=== PATIENT | female | born 1980 | race Caucasian/White ===

== ENCOUNTER 2020-07-05 10:38 | Day surgery (SDC) | payer OTHER, SELFPAY ==
[2020-07-05] VITALS (28 sets, daily range): BP systolic 100–177; BP diastolic 51–85; PULSE 53–64; RESP 12–20; TEMP 6.1–43; O2SAT 96–100; BMI 24.5; BMI 25.4
--- NOTE | 2020-07-05 11:13 | HMH.EDABDPAI ---
ED Disposition Clinical Impression: Ovarian torsion Disposition: Still a Patient Condition on Discharge: Good Referrals: PCP,No [Primary Care Provider] - Time of Disposition: 16:29 - Critical Care Critical Care Time: Yes (75) Attestation: On , the high probability of a clinically significant, sudden or life threatening deterioration of the following system(s) required my full and direct attention, intervention and personal management. The time I documented below is in addition to time spent performing reported procedures but includes the following listed in this critical care notation. Total Critical Care Time: 75 Vital system(s) involved:: Circulatory Failure (torsion) My critical care processes included: Assessment & monitoring of V/S, Initial and Re-exams, Data Review/Interpretation, Coordinating Care, Medication Orders and management, Documentation Medical Decision Making - Aaron Inquiry Pt receiving controlled substance: No Vital Signs: 07/05/20 10:48 07/05/20 11:35 07/05/20 11:47 Temperature 98.4 F Temperature Source Oral Pulse Rate 58 L 59 L Pulse Rate [Right Brachial] 64 Respiratory Rate 16 Blood Pressure 133/81 130/66 Blood Pressure [Right Arm] 142/80 H Blood Pressure Mean 107 88 Blood Pressure Mean [Right Arm] 100 Blood Pressure Source [Right Arm] Automatic Cuff Blood Pressure Position [Right Arm] Supine 02 Sat by Pulse Oximetry 100 100 99 Oxygen Delivery Method Room Air 07/05/20 12:16 07/05/20 12:17 07/05/20 12:18 Temperature Temperature Source Pulse Rate 53 L Pulse Rate [Right Brachial] Respiratory Rate Blood Pressure 177/85 H Blood Pressure [Right Arm] Blood Pressure Mean 115 Blood Pressure Mean [Right Arm] Blood Pressure Source [Right Arm] Blood Pressure Position [Right Arm] 02 Sat by Pulse Oximetry 100 100 Oxygen Delivery Method 07/05/20 12:19 07/05/20 12:30 07/05/20 12:31 Temperature Temperature Source Pulse Rate Pulse Rate [Right Brachial] Respiratory Rate Blood Pressure 147/73 H Blood Pressure [Right Arm] Blood Pressure Mean 97 Blood Pressure Mean [Right Arm] Blood Pressure Source [Right Arm] Blood Pressure Position [Right Arm] 02 Sat by Pulse Oximetry 100 100 100 Oxygen Delivery Method 07/05/20 12:45 07/05/20 13:00 07/05/20 13:10 Temperature Temperature Source Pulse Rate Pulse Rate [Right Brachial] Respiratory Rate Blood Pressure 161/68 H Blood Pressure [Right Arm] Blood Pressure Mean 99 Blood Pressure Mean [Right Arm] Blood Pressure Source [Right Arm] Blood Pressure Position [Right Arm] 02 Sat by Pulse Oximetry 100 100 100 Oxygen Delivery Method 07/05/20 13:15 07/05/20 13:24 07/05/20 16:05 Temperature Temperature Source Pulse Rate Pulse Rate [Right Brachial] Respiratory Rate Blood Pressure 116/61 Blood Pressure [Right Arm] Blood Pressure Mean 71 Blood Pressure Mean [Right Arm] Blood Pressure Source [Right Arm] Blood Pressure Position [Right Arm] 02 Sat by Pulse Oximetry 100 100 Oxygen Delivery Method 07/05/20 16:06 07/05/20 16:28 Temperature 98.2 F Temperature Source Pulse Rate 60 64 Pulse Rate [Right Brachial] Respiratory Rate 18 Blood Pressure 128/78 Blood Pressure [Right Arm] Blood Pressure Mean Blood Pressure Mean [Right Arm] Blood Pressure Source [Right Arm] Blood Pressure Position [Right Arm] 02 Sat by Pulse Oximetry 99 Oxygen Delivery Method Room Air - Lab Data Lab results reviewed: Yes: I reviewed the patient's lab results. Lab Results 07/05/20 11:10: WBC 6.3, RBC 4.68, Hgb 14.7, Hct 43.7, MCV 93.3, MCH 31.3 H, MCHC 33.6, RDW 13.0, Plt Count 187, MPV 8.4, Neut % (Auto) 69.5, Lymph % (Auto) 25.2, [place] % (Auto) 4.2, Eos % (Auto) 0.9, Baso % (Auto) 0.2, Neut # (Auto) 4.4, Lymph # (Auto) 1.6, [place] # (Auto) 0.3, Eos # (Auto) 0.1, Baso # (Auto) 0.0 06/20
--- NOTE | 2020-07-05 11:30 | CT_ITS ---
PROCEDURE: CT ABDOMEN PELVIS W CON CLINICAL INDICATION: abd pain Abdominal pain with nausea and vomiting COMPARISON: No exams were available for comparison TECHNIQUE: IV Contrast: 75ML Isovue 370 Oral Contrast None Axial images obtained with sagittal and coronal reformats. All CT scans at the facility use one or more dose reduction, viz: automated exposure control, ma/kV adjustment per patient size (including targeted exams where dose is matched to indication, i.e. head), or iterative reconstruction technique. FINDINGS: LOWER THORAX: There is a 4 mm noncalcified nodule in the lingula. 3 mm noncalcified nodules the left lower lobe. ABDOMEN & PELVIS: Focal decreased attenuation in the left hepatic lobe at the falciform ligament region common place for focal fatty infiltration measuring 1.5 cm. The gallbladder, spleen, adrenal glands, pancreas, and kidneys have an unremarkable appearance. No renal or ureteral calculi. No hydronephrosis. No evidence of appendicitis. No intestinal obstruction or free air. There has been a prior hysterectomy. There is a complex cystic pelvic mass epicentered in the central aspect of the pelvis were extending both right and left aspect of the pelvis. The mass measures 11 cm transverse, 6 cm AP, and 5.5 cm cephalad caudad. There is some lobulation of the pelvic mass along the left aspect with a 3 cm cystic component on the left aspect and a 1.5 cm cystic component posteriorly and on the left. Small amount of pelvic fluid is also noted. No acute bony findings. Small bilateral fibrosis cortical defects noted of the femoral necks on both sides. IMPRESSION: Complex cystic pelvic mass. Along the left aspect of the mass there are 2 rounded cystic areas with thin emmanuel which may be left-sided ovarian cysts with a central right cystic component possibly due to a large exophytic cyst or even a cyst from right adnexa. Ovarian cystadenoma is consideration. The mass is not well delineated due to overlying unopacified bowel loops and unopacified urinary bladder. Pelvic ultrasound suggested for further evaluation initially. MRI may eventually be needed. Dictated by: Aly Schulz MD 07/05/2020 12:49 Aly Schulz MD in [facility] 07/05/2020 12:49
[2020-07-05 11:32] LABS: Chloride 105 mmol/L (98-107); Potassium 3.7 mmoL/L (3.5-5.1); Sodium 135 mmol/L (136-145)
[2020-07-05 11:33] LABS: Basophils % 0.2 % (0.1-2.0); Eosinophils # 0.1 K/mm3 (0.0-0.4); Eosinophils % 0.9 % (0.1-12.0); Hematocrit 43.7 % (37.0-47.0); Hemoglobin 14.7 g/dL (12.2-16.2); Lymphocytes # 1.6 K/mm3 (0.7-4.5); Lymphocytes % 25.2 % (10-50); Mean Corpuscular HGB Conc 33.6 g/dL (31.8-35.4); Mean Corpuscular Hemoglobin 31.3 pg (27.0-31.2); Mean Corpuscular Volume 93.3 fl (81-99); Mean Platelet Volume 8.4 fl (7.4-10.4); Monocytes # 0.3 K/mm3 (0.1-1.0); Monocytes % 4.2 % (1.7-9.3); Neutrophils # 4.4 K/mm3 (1.8-7.8); Neutrophils % 69.5 % (37.0-80.0); Platelet Count 187 K/mm3 (142-424); Red Blood Count 4.68 M/mm3 (4.20-5.40); White Blood Count 6.3 K/mm3 (4.8-10.8)
[2020-07-05 11:34] LABS: Alanine Aminotransferase 16 U/L (12-78); Aspartate Amino Transferase 27 U/L (14-36); Blood Urea Nitrogen 10 mg/dl (7-17); Creatinine Clearance Estimated 124 mL/min (50-200); Estimated Glomerular Filt Rate 112 ml/min (>60); GFR (African American) 136 ML/MIN (>60)
[2020-07-05 11:35] LABS: Albumin Level 4.3 g/dl (3.5-5.0); Albumin/Globulin Ratio 1.3 (1.1-1.8); Alkaline Phosphatase 84 U/L (38-126); Anion Gap 10.7 mEq/L (5-15); Bilirubin,Total 0.5 mg/dl (0.2-1.3); Calcium 9.6 mg/dl (8.4-10.2); Carbon Dioxide 23 mmol/L (22.0-30.0); Globulin 3.3 g/dL (1.3-3.2); Glucose 116 mg/dl (74-100); Lipase 35 U/L (23-300); Total Protein,Serum 7.6 g/dl (6.3-8.2)
[2020-07-05 11:36] LABS: Microscopic, Urine URINE MICROSCOPIC (MICROSCOPIC)
[2020-07-05 11:39] LABS: Appearance,Urine CLEAR (Clear); Bilirubin,Urine Negative (Negative); Blood, Urine Negative (Negative); Color,Urine YELLOW (Yellow); Glucose,Urine (UA) Negative (Negative); Ketones,Urine 1+ (Negative); Leukocyte Esterase,Urine Negative (Negative); Nitrate,Urine Negative (Negative); PH,Urine 7.5 (5.0-8.5); Protein,Urine Negative (Negative); Urobilinogen,Urine 0.2 EU/dl (0.2)
[2020-07-05 11:42] LABS: Urine Pregnancy, HCG Qual. Negative (Negative)
[2020-07-05 11:55] LABS: Bacteria,Urine 3+ /lpf; Squamous Epithelial Cell,Urine TNTC #/hpf (0-5); WBC,Urine Occasional #/hpf (0-3)
--- NOTE | 2020-07-05 13:11 | US_ITS ---
PROCEDURE: US TRANSVAGINAL CLINICAL INDICATION: Abnl CT finding Pain, pelvic pain COMPARISON: No exams were available for comparison FINDINGS: There is given history of prior hysterectomy and right loose rectum E. there is a large complex cystic lesion within the pelvis corresponding to the CT abnormality measuring 10 x 5 cm with multiple septations consistent with a large ovarian cyst. There is a rind of Iso echogenicity around 1 of the cystic structures and may be due to ovarian tissue. Blood flow is not identified within the ovary. Torsion is therefore considered. There is a small amount of fluid in the cul-de-sac. IMPRESSION: Complex left ovarian cyst. No evidence of blood flow within the ovary or the emmanuel of the cyst suggesting ovarian torsion. Ovarian cystadenoma is included in the differential diagnosis. Follow-up recommend Dictated by: Aly Schulz MD 07/05/2020 14:24 Aly Schulz MD in [facility] 07/05/2020 14:24
[2020-07-05 15:14] LABS: Coronavirus 19 IgG Antibody Negative (Negative); Coronavirus 19 IgM Antibody Negative (Negative)
--- NOTE | 2020-07-05 15:40 | PC.NURSE ---
OB Dr. Peralta at bedside.
--- NOTE | 2020-07-05 16:09 | PC.NURSE ---
Patient prepped for surgery and consents signed.
--- NOTE | 2020-07-05 16:10 | HMH.HP ---
*Admission Date: 07/05/20 *Chief complaint: Severe left lower quadrant pain possible ovarian torsion *History of present illness: She is a 39-year-old 2 para 2 who started having some lower abdominal discomfort and left lower quadrant pain 48 hours ago. She went to work today and was in severe pain so she came to the ER. CT scan showed a possible 11 cm left ovarian cyst. She had a previous hysterectomy and RSO. Ultrasound confirmed a 7 cm complex cyst with possible hemorrhage or torsion. There was no flow on the ovary but the cyst wall was very thin. There is trace of fluid in the cul-de-sac as well. [facility] History I have reviewed the patient's past medical history: Yes *Have you ever received a pneumonia vaccine?: No *Have you received a flu vaccine this season?: Yes - *Social History *Occupational Status:: employed *Travel in the last 8 weeks: None Family Hx:: No significant family history Review of Systems - Review of Systems Review of systems:: pertinent systems reviewed and negative unless documented below Meds Allergies Allergy/AdvReac Type Severity Reaction Status Date / Time No Known Allergies Allergy Verified 07/05/20 11:20 Exam Vital signs and Labs for Last 24 Hours: Temp Pulse Resp BP Pulse Ox 98.4 F 53 L 16 161/68 H 100 07/05/20 10:48 07/05/20 12:16 07/05/20 10:48 07/05/20 13:10 07/05/20 13:15 Laboratory Results - last 24 hr 07/05/20 11:10: WBC 6.3, RBC 4.68, Hgb 14.7, Hct 43.7, MCV 93.3, MCH 31.3 H, MCHC 33.6, RDW 13.0, Plt Count 187, MPV 8.4, Neut % (Auto) 69.5, Lymph % (Auto) 25.2, [place] % (Auto) 4.2, Eos % (Auto) 0.9, Baso % (Auto) 0.2, Neut # (Auto) 4.4, Lymph # (Auto) 1.6, [place] # (Auto) 0.3, Eos # (Auto) 0.1, Baso # (Auto) 0.0 07/05/20 11:10: Sodium 135 L, Potassium 3.7, Chloride 105, Carbon Dioxide 23, Anion Gap 10.7, BUN 10, Creatinine 0.60, Estimated Creat Clear 124, Estimated GFR 112, Est GFR ( Amer) 136, Glucose 116 H, Calcium 9.6, Total Bilirubin 0.5, AST 27, ALT 16, Alkaline Phosphatase 84, Total Protein 7.6, Albumin 4.3, Globulin 3.3 H, Albumin/Globulin Ratio 1.3, Lipase 35 07/05/20 11:10: SARS-CoV-2 IgG Ab (Rapid) Negative, SARS-CoV-2 IgM Ab (Rapid) Negative 07/05/20 11:30: Urine Color Yellow, Urine Appearance Clear, Urine pH 7.5, Ur Specific [place] 1.020, Urine Protein Negative, Urine Glucose (UA) Negative, Urine Ketones 1+, Urine Blood Negative, Urine Nitrate Negative, Urine Bilirubin Negative, Urine Urobilinogen 0.2, Ur Leukocyte Esterase Negative, Urine RBC None, Urine WBC Occasional, Ur Squamous Epith Cells Tntc, Urine Bacteria 3+ 07/05/20 11:30: Urine HCG, Qual Negative I & O for Last 24 hours: Intake & Output 07/03/20 07/04/20 07/05/20 07/06/20 11:59 11:59 11:59 11:59 Weight 135 lb - Constitutional no acute distress - *Routine HEENT Exam Head: Present: normocephalic Eye: Present: EOMI, PERRL ENT: Present: mucous membranes moist - *Routine Neck Exam Present: supple, full ROM - *Routine Respiratory Exam Absent: accessory muscle use (good air entry bilaterally), wheezes, crackles - *Routine Cardiovascular Exam Present: RRR. Absent: murmur - *Routine Abdominal Exam Present: soft, normoactive bowel sounds. Absent: tenderness, rebound, guarding, mass - *Routine Rectal Exam Patient deferred: visual exam, digital exam - *Routine Exam Patient deferred: external exam, groin exam, perineal exam - *Routine Extremities Exam Present: full ROM. Absent: cyanosis, edema, calf tenderness - *Routine Skin Exam Present: intact (good color) - *Routine Neurological Exam Present: alert, oriented X3 - Routine Psychiatric Exam Present: normal affect Assessment and Plan (1) Left ovarian cyst Status: Acute Category: Medical Code(s): N83.202 - Unspecified ovarian cyst, left side (2) Hemorrhagic cyst of left ovary Status: Acute Category: Medical Code(s): N83.202 - Unspecified ovarian cyst, left side (3) Ovarian torsion
--- NOTE | 2020-07-05 17:02 | P.PN_ITS ---
[facility] Anesthesia Checklist - Structural Data Admitted From: Emergency Dept Planned Operative Procedure/s: dx lap Consent for Planned Operative Procedure(s) Verified: Yes - Airway Assessment C-Spine Mobility Assessed: Yes TMJ Mobility Assessed: Yes Dentition: Poor Dentition - Neurological Assessment Level of Consciousness: Awake, Alert, Appropriate - Anesthesia Plan Anesthesia Risk discussed: Yes Anesthesia Plan: Verified ASA Class: II Anesthesia Type: General [facility] History I have reviewed the patient's past medical history: Yes *Have you ever received a pneumonia vaccine?: No *Have you received a flu vaccine this season?: Yes Anesthesia experience/problems:: none Other Surgeries: Yes: Hysterectomy-Partial Amputation: No - *Social History Smoking Status: Current every day smoker Substance Use Type: denies use *Occupational Status:: employed *Travel in the last 8 weeks: None Family Hx:: Unable to obtain
--- NOTE | 2020-07-05 17:57 | HMH.OPNOTE ---
Date of procedure: 07/05/20 Pre-op Diagnosis:: Severe left lower quadrant pain, left ovarian cyst, hemorrhagic left ovarian cyst, possible torsion Post-op Diagnosis:: Left lower quadrant pain, left hemorrhagic ovarian cyst, torsion of the left ovary, endometriosis of the ovary and deep pelvis Procedure performed:: Laparoscopic left nephrectomy Surgeon:: Guanaco Reid MD GAS USAGE METER CLERK:: Boyd Hubbard Anesthesia: GETA Estimated blood loss (mL): 50 Clinical Note:: She is a 39-year-old 2 para 2 lady who started having some left lower quadrant pain a couple of days ago. She began having severe pain this afternoon and came into the ER. She had a CT scan that showed an 11 cm left complex multicystic left ovary. There was no flow in the ovary and it was felt to be under torsion. As result of that she was offered laparoscopic ovarian cystectomy as well as possible left oophorectomy. She has had a previous hysterectomy and right salpingo-oophorectomy. Operative findings:: Her left ovary was enlarged and had multiple hemorrhagic ovarian cyst. There was one large cyst approximately 6 cm in size that was filled with serous fluid. There were a couple of chocolate cysts possibly consistent with endometriosis. The left ovary was twisted upon its pedicle and there did not seem to be any blood supply to the left ovary. There were 3 or 4 spots of old powder canales in the pelvis possibly consistent with endometriosis. I did not remove these because 2 of the spots were overlying what appeared to be the left ureter and they were quite thickly adhesed. Operative note:: She was taken the operating room where general anesthesia was found to be adequate. She was prepped and draped in normal sterile fashion in the semilithotomy position. The bladder was drained and a sponge forcep was placed in the vagina. I injected 10 cc of 0.5% ropivacaine around the umbilicus and made a small incision within the umbilicus. I inserted a Veress needle into the abdominal cavity and then insufflated the abdominal cavity with carbon dioxide to a pressure of 20 mmHg. I then inserted a 5 mm trocar under direct vision. I injected through and through the pubic hairline, made a small incision here and inserted an 11 mm trocar under direct vision. Identified the inferior gastric arteries, went lateral to these on the left side and then inserted a 5 mm trocar after injecting through and through with ropivacaine. The findings were as previously dictated then using harmonic scalpel I detorsed the left ovary. There were multiple cysts on the ovary as well as hemorrhagic cyst and using harmonic scalpel I opened these up. There did not seem to be much bleeding from any of these and I suspected that the ovary was no longer functional as a result of the torsion. I elected to remove the ovary. After I detorsed the ovary the left pedicle was actually quite engorged possibly consistent with a small hematoma obstructing the blood flow. Using harmonic scalpel on coagulation mode I cut through the ovarian pedicle. I then placed an Endoloop on the left pedicle. I then drained all the cyst from the left ovary and cut the ovary in half with harmonic scalpel and removed in 2 pieces from the pelvis. The second larger piece was placed in an Endo Catch bag and removed through the 11 mm trocar site. We then inspected the pelvis and rinsed it well with saline. All sites were hemostatic. We then injected approximately 30 cc of 0.5% ropivacaine into the pelvis. The secondary trochars were removed under direct vision. The gas was over the abdomen and no bowel was seen to follow through the trocar sites. The 11 mm trocar site was closed deeply with [id number] 2-0 Vicryl suture followed by running subcuticular 4-0 Monocryl suture. The 5 mm trocar sites were closed with subcuticular 4-0 Monocryl. Sterile dressings were applied. She tolerated the procedure well and was taken to the recovery room in ex
--- NOTE | 2020-07-05 18:03 | P.PN_ITS ---
[facility] Anesthesia Record Part I Intake, IV Amount: 1,200 Estimated blood loss (mL): 50 Urine output (mL): 0 Blood Pressure: 103/60 SaO2: 98 Pulse Rate: 63 Respiratory Rate: 12 Temperature: 97.6 F Patient is:: Awake, Stable Stable to PACU at:: 17:55
--- NOTE | 2020-07-06 17:26 | P.PN_ITS ---
[facility] Anesthesia Record Part II Discharge Time: 18:25 Destination: Surgical Day Care (OP Surgery) PACU nurse assessment reviewed?: Yes Patient Condition:: Good Anesthesia Complications:: None Swallowing reflex intact?: Yes Cyanosis?: No Blood Pressure: 122/51 Pulse Rate: 56 Temperature: 97.6 F Mental Status: Alert & Oriented Pain level:: 0 Nausea and/or vomitting:: None Intake, IV Amount: 0
[2020-07-06 17:27] VITALS: BP 122/51; PULSE 56; TEMP 36.4
== END 2020-07-05 19:25 | disposition home or self-care (01) ==
LOC: ER 16:30 → SDC 17:15
PROVIDERS: Emergency Provider Family Medicine; Visit Provider Nurse Practitioner Obstetrics & Gynecology
PROC: (CPT 50546; principal; 2020-07-05 13:45)
DX: N83.512 Torsion of left ovary and ovarian pedicle; N80.1 Endometriosis of ovary; N80.3 Endometriosis of pelvic peritoneum; Z72.0 Tobacco use; E66.9 Obesity, unspecified; Z68.42 Body mass index [BMI] 45.0-49.9, adult
CPT/HCPCS: 50546; 74177; 76830; 80053; 81001; 81025; 83690; 85025; 86328; 87086; 96365; 96374; 96375; 99284; J2405; Q9967; U0003

== ENCOUNTER → 2022-10-24 11:42 | Outpatient (CLI) | payer BC, SELFPAY ==
[2022-10-24 12:13] LABS: Basophils % 0.7 % (0.1-2.0); Eosinophils # 0.1 K/mm3 (0.0-0.4); Eosinophils % 2.3 % (0.1-12.0); Hematocrit 44.8 % (37.0-47.0); Hemoglobin 14.7 g/dL (12.2-16.2); Lymphocytes # 1.8 K/mm3 (0.7-4.5); Lymphocytes % 39.9 % (10-50); Mean Corpuscular HGB Conc 32.8 g/dL (31.8-35.4); Mean Corpuscular Volume 91.5 fl (81-99); Mean Platelet Volume 8.6 fl (7.4-10.4); Monocytes # 0.2 K/mm3 (0.1-1.0); Monocytes % 4.4 % (1.7-9.3); Neutrophils # 2.4 K/mm3 (1.8-7.8); Neutrophils % 52.7 % (37.0-80.0); Platelet Count 221 K/mm3 (142-424); Red Cell Distribution Width 13.2 % (11.5-17.5); White Blood Count 4.6 K/mm3 (4.8-10.8)
[2022-10-24 12:44] LABS: Alanine Aminotransferase 24 U/L (12-78); Albumin Level 3.9 g/dl (3.5-5.0); Albumin/Globulin Ratio 1.3 (1.1-1.8); Alkaline Phosphatase 98 U/L (38-126); Anion Gap 11.3 mEq/L (5-15); Aspartate Amino Transferase 33 U/L (14-36); Bilirubin,Total 0.4 mg/dl (0.2-1.3); Blood Urea Nitrogen 11 mg/dl (7-17); Calcium 8.9 mg/dl (8.4-10.2); Carbon Dioxide 26 mmol/L (22.0-30.0); Chloride 104 mmol/L (98-107); Chol/HDL Ratio 5.1 (1-3.5); Cholesterol 270 mg/dl (140-200); Estimated Glomerular Filt Rate 93 ml/min (>60); GFR (African American) 112 ML/MIN (>60); Globulin 3.1 g/dL (1.3-3.2); Glucose 88 mg/dl (74-100); HDL Cholesterol 53 mg/dl (40-60); Potassium 4.3 mmoL/L (3.5-5.1); Sodium 137 mmol/L (136-145); Triglycerides 215 mg/dl (30-150); VLDL Cholesterol 43 mg/dL (0-40)
[2022-10-24 12:55] LABS: Direct LDL Cholesterol 142.79 mg/dL (100-129)
[2022-10-24 13:00] LABS: Free Thyroxine Index 2.9 ug/dL (5.93-13.13); T4 (Thyroxine) 9.1 ug/dl (5.53-11.0); Triiodothryronine (T3) Uptake 32 % (23.5-40.5)
[2022-10-24 13:14] LABS: Thyroid Stimulating Hormone 1.45 uIU/mL (0.465-4.68)
[2022-10-24 13:33] LABS: Vitamin B12 295 pg/mL (239-931)
[2022-10-29 21:08] LABS: 1,25 Dihydroxy Vitamin D 37 pg/mL (.); 1,25-Dihydroxy, Vitamin D-2 <10 pg/mL (.); 1,25-Dihydroxy, Vitamin D-3 36 pg/mL (.)
== END ==
PROVIDERS: Visit Provider Nurse Practitioner Obstetrics & Gynecology
DX: R53.83 Other fatigue (principal); E66.9 Obesity, unspecified; Z68.31 Body mass index [BMI] 31.0-31.9, adult
CPT/HCPCS: 36415; 80053; 80061; 82607; 82652; 84436; 84443; 84479; 85025